=== PATIENT | male | born 1970 | race African-American/Black ===

== ENCOUNTER 2018-12-28 10:53 | Outpatient (CLI) | payer BC, SELFPAY ==
[2018-12-28 13:48] LABS: ALT (SGPT) 28 U/L (8-55); AST (SGOT) 20 U/L (5-34); Albumin 4.3 g/dL (3.5-5.0); Alkaline Phosphatase 127 U/L (40-110); Anion Gap 17 mmol/L (10-20); BUN (Urea Nitrogen) 11 mg/dL (8.9-20.6); Bilirubin, Total 0.5 mg/dL (0.2-1.2); Calc. Creatinine Clearance 0 mL/min (70-130); Calcium 9.3 mg/dL (7.8-10.44); Carbon Dioxide 22 mmol/L (22-29); Cardiac Risk 5.3 (Less than 4.5); Chloride 104 mmol/L (98-107); Cholesterol 197 mg/dl (< 200 Desired); Estimated GFR-MDRD 80; Globulin 3.6 g/dL (2.4-3.5); Glucose 107 mg/dL (70-105); HDL Cholesterol 37 mg/dL (>60 Neg Risk); LDL Cholesterol, Calculated 123 mg/dL; Potassium 4.1 mmol/L (3.5-5.1); Protein, Total 7.9 g/dL (6.0-8.3); Sodium 139 mmol/L (136-145); Triglycerides 184 mg/dL (Less than 150)
[2018-12-28 17:14] LABS: Hemoglobin A1c 5.2 % (4.0-6.0)
[2018-12-28 17:49] LABS: HIV (1/2) Antibody/Antigen Non-Reactive (NonReactive); HIV 1/2 INDEX 0.08 S/CO (<1.00)
== END 2018-12-28 10:54 | disposition home or self-care (01) ==
LOC: MADLABBHPM 10:53
PROVIDERS: ATTEND Family Medicine
DX: Z00.01 Encounter for general adult medical examination with abnormal findings (principal); I16.0 Hypertensive urgency
CPT/HCPCS: 36415; 80053; 80061; 83036; 87389; 93005; 93010